=== PATIENT | female | born 1990 ===

== ENCOUNTER 2024-02-15 05:43 | Day surgery (SDC) | payer OTHER ==
[2024-02-13 13:36] VITALS: BMI 24.7
[2024-02-15] MEDS ORDERED: LIDOCAINE HCL 2% JELLY 11 ML TP ONE (09:28)
[2024-02-15 10:38] VITALS: TEMP 98
[2024-02-15 11:04] VITALS: BP 102/76; PULSE 85; RESP 17
== END 2024-02-15 11:27 | disposition home or self-care (01) ==
LOC: JASU-ENDO 05:43
PROVIDERS: ATTEND Internal Medicine Gastroenterology
PROC: 06LY8CC Occlusion of Hemorrhoidal Plexus with Extraluminal Device, Via Natural or Artificial Opening Endoscopic (ICD-10-PCS; principal; 2024-02-15 09:30)
DX: K64.5 Perianal venous thrombosis (principal); K64.8 Other hemorrhoids
CPT/HCPCS: 81025

== ENCOUNTER 2024-10-10 06:58 | Day surgery (SDC) | payer OTHER ==
[2024-10-02 13:44] VITALS: BMI 22.6
[2024-10-10] MEDS ORDERED: MIDAZOLAM HCL 2 MG/2 ML SINGLE DOSE VIAL IVPUSH ONE (09:59)
[2024-10-10] MEDS ORDERED: MIDAZOLAM HCL 2 MG/2 ML SINGLE DOSE VIAL ONE (10:06)
[2024-10-10 10:30] VITALS: TEMP 98.5
[2024-10-10 11:06] VITALS: BP 112/63; PULSE 76; RESP 15
== END 2024-10-10 11:00 | disposition home or self-care (01) ==
LOC: JASU-ENDO 06:58
PROVIDERS: ATTEND Internal Medicine Gastroenterology
PROC: 0DB78ZX Excision of Stomach, Pylorus, Via Natural or Artificial Opening Endoscopic, Diagnostic (ICD-10-PCS; 2024-10-10)
PROC: 0DB68ZX Excision of Stomach, Via Natural or Artificial Opening Endoscopic, Diagnostic (ICD-10-PCS; principal; 2024-10-10 08:30)
DX: K29.70 Gastritis, unspecified, without bleeding (principal); B96.81 Helicobacter pylori [H. pylori] as the cause of diseases classified elsewhere
CPT/HCPCS: 81025; 88305-TC; 88341-TC; 88342-TC; 93005; 93010